=== PATIENT | female | born 1940 | race Caucasian/White ===

== ENCOUNTER → 2016-07-27 | Outpatient (CLI) | payer MEDICARE, MEDICAID ==
--- NOTE | 2016-07-27 14:49 | MM ---
Reason for exam: follow-up at short interval from prior study. Last mammogram was performed 6 months ago. History: Patient is postmenopausal. Benign excisional biopsy of the right breast, 1986. Took estrogen for 10 years beginning at age 49. Took progesterone for 10 years beginning at age 49. Physical Findings: Nurse did not find any significant physical abnormalities on exam. MG 3D Diag Mammo W/Cad LT CC and MLO view(s) were taken of the left breast. Prior study comparison: January 26, 2016, bilateral MG 3d screening mammo w/cad. November 23, 2014, bilateral MG screening mammo w CAD. The breast tissue is heterogeneously dense. This may lower the sensitivity of mammography. Finding: There are typically benign calcifications in the left breast. No significant changes in finding since January 26, 2016 and November 23, 2014. These results were verbally communicated with the patient and result sheet given to the patient on 07/27/16. ASSESSMENT: Benign, BI-RAD 2 RECOMMENDATION: Return to routine screening mammogram schedule for both breasts. Back on schedule.
--- NOTE | 2016-07-28 09:36 | BD ---
EXAMINATION TYPE: MG DEXA axial skeleton. DATE OF EXAM: 07/27/2016 COMPARISON: 06.10.2013 CLINICAL HISTORY: m81.0 disorder of bone Height: 63.3 Weight: 122 FRAX RISK QUESTIONS: Alcohol (3 or more units per day): NO Family History (Parent hip fracture): NO BREAKS Glucocorticoids (More than 3mos): NO (Ex: prednisone, prednisolone, methylprednisolone, dexamethasone, and hydrocortisone). History of Fracture in Adulthood: NO Secondary Osteoporosis: NO 1. Type 1 Diabetes: NO 2. Hyperthyroidism: NO 3. Menopause before 45: NO 4. Malnutrition: NO 5. Chronic liver disease: NO Rheumatoid Arthritis: NO Current Tobacco Use: NO RISK FACTORS HISTORY OF: History of Wrist Fracture: RT WRIST IN PAST When: UNSURE, Family History of Osteoporosis: GR GRANDMOTHER, MATERNAL, Smoke tobacco: NO Drink Alcohol: SOCIAL Active: YES Diet low in dairy products/other sources of calcium: NO Postmenopausal woman: YES AT 49 YRS OLD Take estrogen and/or progesterone medications: IN THE PAST FOR 10 YRS How long: YES Adrenal Insufficiency: NO MEDICATIONS: Osteoporosis Medications: BONIVA IN THE PAST....OFF FOR 2 YRS Additional Medications: CALCIUM AND VIT D, MULTIVITAMIN Additional History: NONE TO NOTE EXAM MEASUREMENTS: Bone mineral densitometry was performed using the [employer] System. Bone mineral density as measured about the Lumbar spine is: ----- L1-L4(G/cm2): 1.365 T Score Values are as follows: ----- L1: 0.1 ----- L2: 1.1 ----- L3: 1.7 ----- L4: 2.8 ----- L1-L4: 1.5 Bone mineral density has: Increased 5.9% since study of: 06.10.2013 Bone mineral density about the R hip (g/cm2): 0.850 Bone mineral density about the L hip (g/cm2): 0.891 T Score values are as follows: -----R Neck: -1.3 -----L Neck: -1.1 -----R Total: -1.2 -----L Total: -0.9 Bone mineral density has: Decreased -4.6% since study of: 06.10.2013 FRAX %'S: A 9.5% CHANCE OF A MAJOR OSTEOPOROTIC FX AND A 1.8% CHANCE FOR A HIP FX......PROBABILITY OF FX IN IMPRESSION: Osteopenia (T Score between -2.5 and -1 as noted by T score values There is slightly increased risk of fracture and the patient may be considered for treatment. Re-Screen 2-5 years. Bone density is diminished 4.6% within the bilateral hips from 06/10/2013. Bone density is improved 5. 9% within the lumbar spine from 2013 NOTE: T-SCORE=SD OF THE YOUNG ADULT MEAN.
== END | disposition home or self-care (01) ==
LOC: RADBDWWP 13:11
PROVIDERS: ATTEND Internal Medicine
DX: R92.8 Other abnormal and inconclusive findings on diagnostic imaging of breast (principal); M81.0 Age-related osteoporosis without current pathological fracture
CPT/HCPCS: 77080; G0206; G0279

== ENCOUNTER → 2017-03-19 | Outpatient (CLI) | payer MEDICARE, MEDICAID ==
[2017-03-15 13:50] VITALS: BMI 20.5
[2017-03-19 13:54] VITALS: BP 147/76; PULSE 93; RESP 16; TEMP 98.2
--- NOTE | 2017-03-19 21:24 | P.CONS ---
History of Present Illness - Reason for Consult Consult date: 03/19/17 - History of Present Illness This is 76 years old female with a chronic history of severe low back pain and started more than 10 years, she denies any initiating event, the pain is constant localized mainly in the low back area, with occasional radiation to the lower extremity, she denies any fever or night sweats. Denies any motor or sensory deficit, she has done physical therapy without any benefit,, she never tried interventional pain management, patient is still the pain is 4/10 and increased with activity, the pain interfering with her quality of life and ability of doing activity of daily livings, she continues to ambulate without difficulty Past Medical History Past Medical History: No Reported History Additional Past Medical History / Comment(s): spinal stenosis, chronic back pain History of Any Multi-Drug Resistant Organisms: None Reported Past Surgical History: Orthopedic Surgery Additional Past Surgical History / Comment(s): mult sx on ruiz feet, ruiz cataracts Past Anesthesia/Blood Transfusion Reactions: No Reported Reaction Smoking Status: Never smoker Medications and Allergies Home Medications Medication Instructions Recorded Confirmed Type Calcium Carbonate/Vitamin D3 1 each PO DAILY 03/15/17 03/15/17 History [Caltrate 600 Plus D3 Tablet] Multivitamins, Thera [Multivitamin 1 tab PO DAILY 03/15/17 03/15/17 History (formulary)] Allergies Allergy/AdvReac Type Severity Reaction Status Date / Time No Known Allergies Allergy Verified 03/15/17 13:42 Physical Exam Vitals: Vital Signs Temp Pulse Resp BP Pulse Ox 03/19/17 13:37 98.2 F 93 16 147/76 97 Social history : not smoker , NO ETOH , NO Illegal drug Review of Systems : 1- Constitutional : no chills , no fever , no night sweats , 2- Ears : no ear discharge , no change in hearing 3-Nose, Mouth ,Throat ; no bleeding gums, no sore throat , no epistaxis , 4-Cardiovascular : Denies chest pain, , no orthopnea , no palpitation 5-Respiratory : Denies cough , no dyspnea , no hemoptysis 6-Gastrointestinal :, no change in bowel habits , no coffee- ground emesis . 7-Genitourinary : No hematuria , no discharge , no incontinence, 8-Musculoskeletal : No gait dysfunction , report low back pain , 9- Neurological : no ataxia , no tremor , no sezure , 10-Psychatric , no suicidal ideation no hallucination 11- Endocrine : no cold intolerence , no polyuria , no polydypsia , 12-Hematologic : no easy bleeding , no easy brusing , 13-Allergic / immunology : no angioedema , no wheezing ,no allergic rhinitis 14-Integumentary : no brttle nails , no change hair / nails , no foot/leg ulcers . Physical Examinations : 1-Constitutional : Cooperative , not in acute distress . 2-HEENT : nech ; supple , no Lymphadenopathy , no Thyromegaly , :eyes , no icterus, no photophobia . ENT : , normal oropharynx , no Thrush 3- Respiratory : Chest clear to auscultations Bilaterally , no wheezing . 4- Cardiovascular : regular rate and rhythem , S1 , S2 , no S3 , no S4. 5- Gastrointestinal: abdomen soft no tenderness , no organomegally . 6- Genitourinary : Defferred . 7-Integumentary : No cellulitis , no ulcers , normal skin turgor , no cyanotic . 8- neurologic : Cranial nerve II to XII intact , no focal neurological deffecit 9-psychatric : alert , oriented X 3 , appropriate affect , intact judgment and insight . 10-Lymphatic : no Lymphadenopathy. 11- musculoskeltal: normal gait Cervical Spine motor stregnth in the deltoid and biceps, normal right side , normal Left side Lumber spine moter stegnth lower extremities ,thigh and legs 5/5 Right side , 5/5 Left side deep tendon reflexes : normal Knee Jerk , normal ankle Jerk positive lumber facet Loading Test Range of motion of the lumbar spine Flexion 60 degrees, extension 30 degrees strait leg raising test , positive at 30 degree left side , negative on the right side Fabere test positive LT . Negative on the right side Results Comments: MRI of the lumbar spine done 02/15/2017 (at [facility]) L2-3 bulging disc disease and foraminal narrowing and facet hypertrophy L3 4 facet degenerative disc disease and foraminal stenosis, L4 5 and disc bulging and facet hypertrophy Assessment and Plan Plan: Assessment and plan= chronic severe low back pain with multifactorial causes secondary to lumbar bulging disc disease and lumbar spondylosis with facet arthropathy, patient could benefit from lumbar epidural steroid injections, procedure risk and benefits and alternatives discussed with the patient and she agreed with proceeding, if she continued to have severe low back pain after second lumbar epidural steroid injections and we have to consider doing diagnostic medial branch block lumbar area and possible radiofrequency ablation , treatment plan discussed with the patient and she is willing to proceed Time with Patient: Greater than 30
== END | disposition home or self-care (01) ==
LOC: PNWHC3 13:01
PROVIDERS: ATTEND Specialist
DX: G89.29 Other chronic pain (principal); M51.26 Other intervertebral disc displacement, lumbar region; M47.816 Spondylosis without myelopathy or radiculopathy, lumbar region; M46.86 Other specified inflammatory spondylopathies, lumbar region; Z98.890 Other specified postprocedural states; Z79.899 Other long term (current) drug therapy; Z79.52 Long term (current) use of systemic steroids
CPT/HCPCS: 99211

== ENCOUNTER 2017-03-22 09:23 | Day surgery (SDC) | payer MEDICARE, MEDICAID ==
[2017-03-21 09:32] VITALS: BMI 20.5
[~2017-03-22 09:23] MED LIST: LACTATED RINGERS 1,000 ML IV SCH
[2017-03-22 09:45] VITALS: TEMP 97.8
[2017-03-22] MEDS ORDERED: LIDOCAINE 1% 20 ML VIAL (10MG/ML) FOR IV START INTRADERMA ONE (09:57)
--- NOTE | 2017-03-22 11:26 | P.PCN ---
Date of Procedure: 03/22/17 Procedure(s) Performed: PREOPERATIVE DIAGNOSIS: 1- Lumbar Degenerative Disc Diseases 2-Lumbar spondylosis with Facet arthropathy without myelopathy POSTOPERATIVE DIAGNOSIS: 1-Lumber Degenerative Disc Diseases 2-Lumbar spondylosis with Facet arthropathy without myelopathy PROCEDURE 1. Lumbar epidural steroid injection under fluoroscopic guidance at the L5-S1 level. 2. Lumbar epidurogram. ANESTHESIA: Local with 1% lidocaine 3 ml and , moderate sedation with intravenous Versed 1 mg ,and fentanyle 50 Mcg EBL: Minimal PROCEDURE INDICATION: The patient with low back pain and radiculitis symptoms unresponsive to conservative treatment. Fluoroscopy was used to optimize visualization of the needle placement and to maximize safety. PROCEDURE DESCRIPTION / TECHNIQUE: The patient was seen and identified in the preoperative area. Risks, benefits , complications including but not limited to infections ,bleeding ,allergic reaction to the medications ,nerve damage and not complete pain releife , and alternatives were discussed with the patient. The patient agreed to proceed with the procedure and signed the consent. IV was started, and vital signs were stable. Patient was taken to the OR and time out was completed. The patient was placed in the prone position on procedure table and a pillow was placed under the abdomen to reduce lumbar lordosis. The lumbosacral area was prepped and draped in the usual sterile fashion.ere closely monitored during the procedure. Conscious sedation was used during the procedure to decrease patients anxiety. Vital signs was monitered during the entire procedure. Using anterior-posterior fluoroscopy, the L5-S1 interlaminar space was identified and the skin over this site was marked and then infiltrated with 1% lidocaine subcutaneously. Subsequently, a 20-gauge Tuohy epidural needle was inserted and advanced toward the epidural space using the ``Loss of resistance technique and guided by AP and lateral fluoroscopy. The correct needle position in the epidural space was verified with the injection of 2 mL of the water soluble contrast dye Omnipaque 180 contrast and observing an excellent epidurogram with the epidural spread of the dye, after negative aspiration for blood and CSF and in the absence of paresthesias. Again after negative aspiration, a 5 ml mixture containing , Depomedrol 40 mg , and 2 ml of preservative free Normal Saline, and 2 ml of preservative free lidocaine 1% solution was injected and a washout of epidurogram was seen. Needle was withdrawn intact, skin was cleansed, and bandages were applied. COMPLICATIONS: None DISPOSITION / PLANS: The patient was placed in a supine position and transferred to the recovery area in a stable condition for observation. There was no evidence of lower extremity motor or sensory deficit after the procedure. Patient was discharged from the recovery room after meeting discharge criteria. Home discharge instructions were given to the patient by the staff. The patient was reexamined prior to discharge. The patient will schedule a follow up in the clinic in 2-4 weeks.
[2017-03-22] MEDS ORDERED: IV FLUID CONTINUATION 700 ML IV ONE (11:34)
[2017-03-22 12:03] VITALS: BP 123/76; PULSE 67; RESP 16
--- NOTE | 2017-03-22 12:09 | FL ---
EXAMINATION TYPE: FL guided pain mgmt statistic DATE OF EXAM: 03/22/2017 HISTORY: Flouroscopy time 2 seconds of fluoroscopy provided. IMPRESSION: 1. Fluoroscopy time.
== END 2017-03-22 12:27 | disposition home or self-care (01) ==
LOC: ORPAIN 09:23
PROVIDERS: ATTEND Specialist
DX: G89.29 Other chronic pain (principal); M51.16 Intervertebral disc disorders with radiculopathy, lumbar region; M47.26 Other spondylosis with radiculopathy, lumbar region; M51.26 Other intervertebral disc displacement, lumbar region
CPT/HCPCS: 62323; J2250; J1030; Q9965; J3010

== ENCOUNTER 2017-04-05 06:23 | Day surgery (SDC) | payer MEDICARE, MEDICAID ==
[2017-04-03 10:36] VITALS: BMI 20.5
[2017-04-05 07:20] VITALS: RESP 18; TEMP 98.1
[2017-04-05] MEDS: LACTATED RINGERS 1,000 ML IV SCH ×2 (07:25→07:28)
--- NOTE | 2017-04-05 07:50 | P.PCN ---
Date of Procedure: 04/05/17 Procedure(s) Performed: PREOPERATIVE DIAGNOSIS: 1- Lumbar Degenerative Disc Diseases 2-Lumbar spondylosis with Facet arthropathy without myelopathy POSTOPERATIVE DIAGNOSIS: 1-Lumber Degenerative Disc Diseases 2-Lumbar spondylosis with Facet arthropathy without myelopathy PROCEDURE 1. Lumbar epidural steroid injection under fluoroscopic guidance at the L5-S1 level. 2. Lumbar epidurogram. ANESTHESIA: Local with 1% lidocaine 3 ml and , moderate sedation with intravenous Versed 1 mg ,and fentanyle 50 Mcg EBL: Minimal PROCEDURE INDICATION: The patient with low back pain and radiculitis symptoms unresponsive to conservative treatment. Fluoroscopy was used to optimize visualization of the needle placement and to maximize safety. PROCEDURE DESCRIPTION / TECHNIQUE: The patient was seen and identified in the preoperative area. Risks, benefits , complications including but not limited to infections ,bleeding ,allergic reaction to the medications ,nerve damage and not complete pain releife , and alternatives were discussed with the patient. The patient agreed to proceed with the procedure and signed the consent. IV was started, and vital signs were stable. Patient was taken to the OR and time out was completed. The patient was placed in the prone position on procedure table and a pillow was placed under the abdomen to reduce lumbar lordosis. The lumbosacral area was prepped and draped in the usual sterile fashion.ere closely monitored during the procedure. Conscious sedation was used during the procedure to decrease patients anxiety. Vital signs was monitered during the entire procedure. Using anterior-posterior fluoroscopy, the L5-S1 interlaminar space was identified and the skin over this site was marked and then infiltrated with 1% lidocaine subcutaneously. Subsequently, a 20-gauge Tuohy epidural needle was inserted and advanced toward the epidural space using the ``Loss of resistance technique and guided by AP and lateral fluoroscopy. The correct needle position in the epidural space was verified with the injection of 2 mL of the water soluble contrast dye Omnipaque 180 contrast and observing an excellent epidurogram with the epidural spread of the dye, after negative aspiration for blood and CSF and in the absence of paresthesias. Again after negative aspiration, a 6 ml mixture containing 40 mg of Depomedrol and 2 ml of preservative free Normal Saline, and 2 ml of preservative free lidocaine 1% solution was injected and a washout of epidurogram was seen. Needle was withdrawn intact, skin was cleansed, and bandages were applied. COMPLICATIONS: None DISPOSITION / PLANS: The patient was placed in a supine position and transferred to the recovery area in a stable condition for observation. There was no evidence of lower extremity motor or sensory deficit after the procedure. Patient was discharged from the recovery room after meeting discharge criteria. Home discharge instructions were given to the patient by the staff. The patient was reexamined prior to discharge. The patient will schedule a follow up in the clinic in 2-4 weeks.
[2017-04-05] MEDS ORDERED: IV FLUID CONTINUATION 1,000 ML IV ONE (08:02)
--- NOTE | 2017-04-05 08:18 | FL ---
Fluoroscopy HISTORY: Pain 3 seconds fluoroscopy time supplied to the referring clinician. 1 intraoperative C-arm images docume nt the procedure. See dictated report from anesthesia.
[2017-04-05 08:20] VITALS: BP 137/80; PULSE 70
== END 2017-04-05 08:41 | disposition home or self-care (01) ==
LOC: ORPAIN 06:23
PROVIDERS: ATTEND Specialist
DX: M47.26 Other spondylosis with radiculopathy, lumbar region (principal); M51.16 Intervertebral disc disorders with radiculopathy, lumbar region
CPT/HCPCS: 62323; J2250; J1030; J3010

== ENCOUNTER → 2017-05-21 | Outpatient (CLI) | payer MEDICARE, MEDICAID ==
--- NOTE | 2017-05-22 10:45 | MM ---
Reason for exam: screening (asymptomatic). Last mammogram was performed 10 months ago. History: Patient is postmenopausal. Benign excisional biopsy of the right breast, 1986. Took estrogen for 10 years beginning at age 49. Took progesterone for 10 years beginning at age 49. Physical Findings: A clinical breast exam by your physician is recommended on an annual basis and results should be correlated with mammographic findings. MG 3D Screening Mammo W/Cad Bilateral CC and MLO view(s) were taken. Prior study comparison: July 27, 2016, left breast MG 3d diag mammo w/cad LT. January 26, 2016, bilateral MG 3d screening mammo w/cad. The breast tissue is heterogeneously dense. This may lower the sensitivity of mammography. There is chronic nodularity bilaterally. There is no dominant lesion. No significant changes when compared with prior studies. ASSESSMENT: Benign, BI-RAD 2 RECOMMENDATION: Routine screening mammogram of both breasts in 1 year.
== END | disposition home or self-care (01) ==
LOC: RADMAMWWP 12:38
PROVIDERS: ATTEND Internal Medicine
DX: Z12.31 Encounter for screening mammogram for malignant neoplasm of breast (principal)
CPT/HCPCS: 77063; 77067

== ENCOUNTER → 2017-05-22 | Outpatient (CLI) | payer MEDICAID, MEDICARE ==
[2017-05-22 11:59] VITALS: BP 151/73; PULSE 80; RESP 18; TEMP 98.3
--- NOTE | 2017-05-22 12:30 | P.PN ---
Progress Note - Text Progress Note Date: 05/22/17 Patient returns for followup for chronic back pain with radiation to L leg, now completely resolved after LESI x 2. Patient is continuing to have right-sided low back pain without significant radiation. Patient continues on only OTC medications for pain with good relief. Patient denies adverse drug effects from medications. Today, pt denies new-onset weakness, bowel/bladder incontinence, or any other signs or symptoms of cauda equina syndrome. There are no signs of acute intoxication, and no indications of medication diversion or overuse. In addition to above, 13-point review of systems is also negative for chest pain , shortness of breath, changes in vision, changes in hearing, new onset weakness , abdominal pain, diarrhea, extreme fatigue, malaise, fever, skin changes, homicidal or suicidal ideation, or bowel or bladder incontinence. Vital Signs: Reviewed in EMR Gen: WDWN, AAOx3, NAD HEENT: NCAT, EOMI, hearing grossly normal Pulm: resp unlabored Neck: supple, trachea midline ROM in flexion lumbar spine: reduced ROM in extension lumbar spine: reduced Lumbar paravertebral tenderness: + Facet loading: + R side > L side SI joint tenderness: neg Sawyer's test: neg Straight leg raise: neg Imaging: Reviewed in EMR Assessment: 1. lumbar radiculitis 2. lumbar spondylosis without myelopathy 3. chronic pain syndrome Plan: 1. Explanation: Opioid and psychological risk scores were reviewed. Diagnoses , prognoses, and multiple treatment options including but not limited to physical therapy, interventional therapies, adjuvant medical therapies, narcotic medication therapies, and surgery were discussed with the patient and all questions were answered to the patient's satisfaction. 2. Opioid agreement: no opioids prescribed today 3. Counseling: The patient was counseled extensively on BODY MASS INDEX, EXERCISE. Specifically, the patient was instructed regarding the importance of weight control, and exercise in the context of both chronic pain and overall health. 4. Procedures: R lumbar MBB L3-S1 5. Consultations: None 6. Investigations: UDS not done, MAPS queried and appropriate 7. Medications: none prescribed 8. Disposition: f/u for procedure as scheduled PQRS measures: 1-Patient's medications are documented in the chart. 2-Tobacco use is negative 3-Patient has not had a pneumococcal vaccine. 4-Advanced care planning discussed, patient unable to give. 5-Opioid contract NOT signed with the patient. 6-Pain positive, follow-up visit or procedure scheduled 7-Patient's blood pressure measured and documented, and patient will follow up with the primary care due to hypertension. 8-Patient's weight was measured, and body mass index within the normal limits 9-Patient WAS NOT identified as an unhealthy alcohol user.
== END | disposition home or self-care (01) ==
LOC: PNWHC3 11:35
PROVIDERS: ATTEND Anesthesiology
DX: G89.4 Chronic pain syndrome (principal); M54.9 Dorsalgia, unspecified; M47.26 Other spondylosis with radiculopathy, lumbar region
CPT/HCPCS: 99211

== ENCOUNTER 2017-05-31 08:09 | Day surgery (SDC) | payer MEDICAID, MEDICARE ==
[2017-05-29 09:26] VITALS: BMI 20.2
[2017-05-31 08:45] VITALS: RESP 16; TEMP 98.1
[2017-05-31] MEDS ORDERED: LIDOCAINE 1% 20 ML VIAL (10MG/ML) FOR IV START INTRADERMA ONE (08:46)
--- NOTE | 2017-05-31 10:00 | P.PCN ---
Date of Procedure: 05/31/17 Procedure(s) Performed: PREOPERATIVE DIAGNOSIS : 1- Lumbar spondylosis with Facet Arthropathy without myelopathy . 2- Lumber degenerative disc disease POSTOPERATIVE DIAGNOSIS: 1- Lumbar spondylosis with Facet Arthropathy without myelopathy . 2- Lumber degenerative disc disease PROCEDURE: Diagnostic Right L3 -4 , L4 -5 , and L5-S1 medial branch block under fluoroscopy ANESTHESIA: Local with 1% lidocaine 3 ml , moderate sedation with intravenous Versed 1 mg and Fentanyl 50 mcg. EBL: Minimal COMPLICATION: None. IV FLUIDS: 100 mL of normal saline. PROCEDURE INDICATION: Chronic low back pain secondary to Facet arthropathy unresponsive to conservative treatment. PROCEDURE DESCRIPTION: the patient was seen and identified in the preop holding area , risks and benefits and possible complications of the procedure and alternative were discussed with the patient, and the patient agreed to proceed with the procedure and signed the consent IV was started and vital signs monitored during the procedure and fluoroscopy was used to maximize the benefit and accuracy of the needle placement, and sedation was given to decrease patient anxiety, patient was taken to the procedure room and placed in prone position vital signs monitored in the back prepped with chlorhexidine X3 then under strict sterile technique using a right oblique fluoroscopy ,the junction of the transverse process and the superior articulating process of the right L3- 4 , L4- 5, and L5-S1 vertebra which corresponding to the fluoroscopy image of the eye of the Venkata dog on the block side for the medial branches and subsequently , after local infiltration of skin and subcu tissuies with lidocaine 1% one mL at each level ,then 22- gauge Quincke-type needles , 3 needle was used , each one of them placed at the junction of the base of the transverse process and the superior articular process at the appropriate level, and the needle was advanced until the periosteum contacted, needle placement confirmed with AP oblique and lateral view and after appropriate needle placement confirmed, and after negative aspiration for heme and CSF and there was no paresthesia 1-1/2 mL of Marcaine 0.5% mixed with 40 mg Kenalog , then half mL injected at each level after negative aspiration the needle subsequently removed . At the end of the procedure and the needles removed and a bandage applied after the skin was cleaned the cleaning solution patient taken to recovery room in stable condition and monitors in the recovery room for 20-30 minutes and discharged home in stable condition after discharge criteria met and patient will follow up with the pain clinic in 2-4 weeks
[2017-05-31] MEDS ORDERED: IV FLUID CONTINUATION 1,000 ML IV ONE (10:17)
[2017-05-31 10:31] VITALS: BP 122/66; PULSE 74
--- NOTE | 2017-05-31 11:33 | FL ---
Fluoroscopy HISTORY: Pain 2 seconds fluoroscopy time supplied to the referring clinician. 2 intraoperative C-arm images docume nt the procedure. See dictated report from anesthesia.
== END 2017-05-31 11:06 | disposition home or self-care (01) ==
LOC: ORPAIN 08:09
PROVIDERS: ATTEND Specialist
DX: G89.29 Other chronic pain (principal); M47.816 Spondylosis without myelopathy or radiculopathy, lumbar region; M51.36 Other intervertebral disc degeneration, lumbar region
CPT/HCPCS: 64493; 64494; 64495; J2250; J3301; J3010

== ENCOUNTER 2017-07-03 06:51 | Day surgery (SDC) | payer MEDICAID, MEDICARE ==
[2017-06-27 16:19] VITALS: BMI 20.2
[2017-07-03] MEDS ORDERED: LIDOCAINE 1% 20 ML VIAL (10MG/ML) FOR IV START INTRADERMA ONE (07:47)
[2017-07-03 07:56] VITALS: TEMP 98.5
--- NOTE | 2017-07-03 08:54 | P.PCN ---
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 2- Lumber degenerative disc disease POSTOPERATIVE DIAGNOSIS: 1- Lumbar spondylosis with Facet Arthropathy without myelopathy . 2- Lumber degenerative disc disease PROCEDURE: Diagnostic Right L3 -4 , L4 -5 , and L5-S1 medial branch block under fluoroscopy ANESTHESIA: Local with 1% lidocaine 6 ml , moderate sedation with intravenous Versed 1 mg and Fentanyl 50 mcg. EBL: Minimal COMPLICATION: None. IV FLUIDS: 100 mL of normal saline. PROCEDURE INDICATION: Chronic low back pain secondary to Facet arthropathy unresponsive to conservative treatment. PROCEDURE DESCRIPTION: the patient was seen and identified in the preop holding area , risks and benefits and possible complications of the procedure and alternative were discussed with the patient, and the patient agreed to proceed with the procedure and signed the consent IV was started and vital signs monitored during the procedure and fluoroscopy was used to maximize the benefit and accuracy of the needle placement, and sedation was given to decrease patient anxiety, patient was taken to the procedure room and placed in prone position vital signs monitored in the back prepped with chlorhexidine X3 then under strict sterile technique using a right oblique fluoroscopy ,the junction of the transverse process and the superior articulating process of the right L3- 4 , L4- 5, and L5-S1 vertebra which corresponding to the fluoroscopy image of the eye of the Venkata dog on the block side for the medial branches and subsequently , after local infiltration of skin and subcu tissuies with lidocaine 1% one mL at each level ,then 22- gauge Quincke-type needles , 3 needle was used , each one of them placed at the junction of the base of the transverse process and the superior articular process at the appropriate level, and the needle was advanced until the periosteum contacted, needle placement confirmed with AP oblique and lateral view and after appropriate needle placement confirmed, and after negative aspiration for heme and CSF and there was no paresthesia 1-1/2 mL of Marcaine 0.5% mixed with 40 mg Kenalog , then half mL injected at each level after negative aspiration the needle subsequently removed intact ,and a bandage applied after the skin was cleaned the cleaning solution patient taken to recovery room in stable condition and monitors in the recovery room for 20-30 minutes and discharged home in stable condition after discharge criteria met and patient will follow up with the pain clinic in 2-4 weeks
[2017-07-03] MEDS ORDERED: IV FLUID CONTINUATION 500 ML IV ONE (09:00)
[2017-07-03 09:08] VITALS: RESP 18
--- NOTE | 2017-07-03 09:17 | FL ---
Fluoroscopy HISTORY: Pain 3 seconds fluoroscopy time supplied to the referring clinician. 2 intraoperative C-arm images docume nt the procedure. See dictated report from anesthesia.
[2017-07-03 09:24] VITALS: BP 124/67; PULSE 76
== END 2017-07-03 09:50 | disposition home or self-care (01) ==
LOC: ORPAIN 06:51
PROVIDERS: ATTEND Specialist
DX: G89.29 Other chronic pain (principal); M47.816 Spondylosis without myelopathy or radiculopathy, lumbar region; M51.36 Other intervertebral disc degeneration, lumbar region
CPT/HCPCS: 64493; 64494; 64495; J2250; J3301; J3010

== ENCOUNTER → 2017-08-07 | Outpatient (CLI) | payer MEDICAID, MEDICARE ==
[2017-08-07 14:37] VITALS: BP 144/68; PULSE 74; RESP 18
--- NOTE | 2017-08-07 16:13 | P.PAINPG ---
Subjective Progress Note Date: 08/07/17 This is follow-up visit for this patient with a history of severe and chronic low back pain secondary to lumbar degenerative disc disease, lumbar facet arthropathy, We have done an interventional pain procedure diagnostic medial branch block lumbar area right-sided L3/L4 5/L5-S1 on 2 different occasions and she got more than 70% decrease in low back pain after each block Patient denies any motor or sensory deficit, denies any change in the bowel movement or urination, patient denies any fever or night sweats. Objective - Vital Signs Vital signs: Vital Signs Temp Pulse 74 08/07/17 14:28 Resp 18 08/07/17 14:28 BP 144/68 08/07/17 14:28 Pulse Ox 92 L 08/07/17 14:28 Intake & Output 08/06/17 08/07/17 08/07/17 18:59 06:59 18:59 Weight 54.431 kg - Exam Physical Examinations : 1-Constitutiona : Cooperative , not in acute distress . 2- musculoskeltal : , Lumber spine = normal moter stegnth lower extremities ,thigh and legs .06/16 Assessment and Plan Plan: Assessment and plan=1 chronic severe low back pain secondary to lumbar degenerative disc disease and lumbar spondylosis with lumbar facet arthropathy Status post diagnostic medial branch block lumbar area 2 She had more than 70% decrease in low back pain after each diagnostic block She will be good candidate for radiofrequency ablation of the medial branch lumbar area she will be scheduled to have right side and the frequency ablation L3 4 /L4 5/L5-S1 under fluoroscopy guidance Procedure risk and benefits and alternatives discussed with the patient and she agreed with proceeding Time with Patient: Less than 30 PQRS Measure Charge Sheet Measure #130: Documentation of Current Meds in Medical Chart: Patient's medications documented in chart Measure #226: Tobacco Use: Screen & Cessation Intervention: Pt not a tobacco user Measure #111: Pneumonia Vaccination: Pneumococcal vaccine administered or previously received Measure #47: Advance Care Plan: Advance care planning discussed & documented, plan or surrogate given Measure #412: Opioid Treatment Agreement: No documentation of signed opioid treatment agreement Measure #408: Opioid Therapy Follow-up Evaluation: Patient had NO f/u eval minimum every 3 months during opioid therapy Measure #317: Preventitive Care & Scrn High Bld Press & F/U: Pre-hypertensive or hypertensive BP documented, pt will f/u with PCP Measure #128: Body Mass Index (BMI) Screening & Follow-up: BMI documented within normal parameters Measure #131: Pain Assessment & Follow-up: Pain positive & plan documented, Follow-up scheduled Measure #431: Unhealthy Alcohol Use Preventative Care & Scrn: Patient not identified as an unhealthy alcohol user PQRS Narrative: Smoking Status Never smoker Do You Want the Pneumonia No Vaccine AT THIS TIME? Blood Pressure 144/68 Pain Intensity [Right Lower 2 Back] Scale Used Numeric (1 - 10) Hx Alcohol Use (MH) Yes Home Medications: Ambulatory Orders Calcium Carbonate/Vitamin D3 [Caltrate 600 Plus D3 Tablet] 1 each PO DAILY 03/15 Multivitamins, Thera [Multivitamin (formulary)] 1 tab PO DAILY 03/15/17 Controlled Substance Measures - Controlled Substance Measures Is patient prescribed a controlled substance at discharge?: No When asked, does pt state using other controlled substances?: No If prescribed controlled substance>3 days was MAPS reviewed?: No If Rx opioid, was Start Talking consent form obtained?: No If opioid is for acute pain is fill amount 7 days or less?: No Was information provided regarding opioid addiction?: No
== END | disposition home or self-care (01) ==
LOC: PNWHC3 13:28
PROVIDERS: ATTEND Specialist
DX: G89.29 Other chronic pain (principal); M51.36 Other intervertebral disc degeneration, lumbar region; M47.816 Spondylosis without myelopathy or radiculopathy, lumbar region; M46.96 Unspecified inflammatory spondylopathy, lumbar region; Z79.899 Other long term (current) drug therapy
CPT/HCPCS: 99211

== ENCOUNTER 2017-08-22 08:00 | Day surgery (SDC) | payer MEDICAID, MEDICARE ==
[2017-08-16 15:54] VITALS: BMI 20.5
[2017-08-22 09:00] VITALS: RESP 16; TEMP 98.3
[2017-08-22] MEDS ORDERED: LIDOCAINE 1% 20 ML VIAL (10MG/ML) FOR IV START INTRADERMA ONE (09:13)
--- NOTE | 2017-08-22 10:06 | P.PCN ---
Date of Procedure: 08/22/17 Procedure(s) Performed: PREOPERATIVE DIAGNOSIS: 1-Lumbar Spondylosis with Facet Arthropathy without myelopathy. 2- Lumber degenerative disc disease POSTOPERATIVE DIAGNOSIS: 1- Lumbar Spondylosis with Facet Arthropathy without myelopathy. 2- Lumber degenerative disc disease PROCEDURES : Right Radiofrequency thermocoagulation, L3-L4, L4-L5, and L5-S1 medial branch, with fluoroscopic guidance ANESTHESIA: Moderate sedation with intravenous versed 1 mg and fentaneyl 100 mcg and local infiltration with lidocaine 1% 6 ml EBL: Minimal PROCEDURE INDICATION: The patient with low back pain secondary to lumbar facet arthropathy who had more than 50% relief of her pain with previous diagnostic lumbar medial branch block with bupivacaine. PROCEDURE DESCRIPTION / TECHNIQUE: The patient was seen and identified in the preoperative area. Risks, benefits, complications, including but not limited to risk of infection ,bleeding , allergic reactions to the medications and no complete pain releife , and alternatives were discussed with the patient, the patient agreed to proceed with the procedure and signed the consent. IV was started. Vital signs remained stable throughout the procedure. Patient was taken to the OR and time out was completed. The patient was placed in the prone position on the procedure table. The lumber area was prepped and draped in the usual sterile fashion. . Vital signs were closely monitored during the procedure .IV sedation was used during the procedure to decrease patients anxiety. Using AP and then oblique fluoroscopy, the ``eye of the Venkata dog corresponding to the connection between the superior and transverse articular processes of right L3, L4, and L5 were identified, marked, and localized with 1 % lidocaine. Subsequently, a 18 -bj radiofrequency cannula with a 10- mm active tip was advanced guided by fluoroscopy to each of the ``eyes of the Venkata dog at right L3, L4, and L5. Each site then underwent sensory testing at 50 Hz and 0 to 1 volt and motor testing at 2.5 Hz and 0 to 3 volt with local stimulation, but no radicular symptoms down the legs. Thereafter the right L3-4, L4-5, and L5-S1 sites underwent radiofrequency thermocoagulation at 80 degrees celsius for 90 seconds after injecting 0.5 ml of PF lidocaine 1%. then After the thermocoagulation done , 1 ml of the block solution containing Kenalog 40 mg and 3 ml of marcain 0.5% was injected at the right L3-4 , L4-5 , and L5-S1, levels after negative aspiration of CSF and blood and with no paresthesias. Cannulas were retracted while injecting lidocaine 1% until the needle is out. At the end of the procedure, the skin was cleansed and bandages were applied. COMPLICATIONS: No acute complications. DISPOSITION / PLANS: The patient was placed in a supine position and transferred to the recovery area in a stable condition for observation and was discharged from the recovery room after meeting discharge criteria. Home discharge instructions given to the patient by the staff. The patient was reexamined prior to discharge. The patient will schedule a follow up in the clinic in 2-4 weeks.
[2017-08-22] MEDS ORDERED: IV FLUID CONTINUATION 400 ML IV ONE (10:12)
--- NOTE | 2017-08-22 10:23 | FL ---
Fluoroscopy HISTORY: Pain 7 seconds fluoroscopy time supplied to the referring clinician. 3 intraoperative C-arm images docume nt the procedure. See dictated report from anesthesia.
[2017-08-22 10:41] VITALS: BP 118/62; PULSE 56
== END 2017-08-22 10:58 | disposition home or self-care (01) ==
LOC: ORPAIN 08:00
PROVIDERS: ATTEND Specialist
DX: M47.816 Spondylosis without myelopathy or radiculopathy, lumbar region (principal); M51.36 Other intervertebral disc degeneration, lumbar region
CPT/HCPCS: 64635; 64636; J2250; J3301; J3010; 99152

== ENCOUNTER → 2017-09-03 | Outpatient (CLI) | payer MEDICAID, MEDICARE ==
--- NOTE | 2017-09-03 13:20 | P.PN ---
Subjective Progress Note Date: 09/03/17 This is a 77-year-old female with history of chronic lower back pain status post lumbar medial branch RFA recently. The patient's pain improved significantly after the last RFA she is doing much better today as she states. Patient denies adverse drug effects from medications. Today, pt denies new- onset weakness, bowel/bladder incontinence, or any other signs or symptoms of cauda equina syndrome. There are no signs of acute intoxication, and no indications of medication diversion or overuse. In addition to above, 13-point review of systems is also negative for chest pain , shortness of breath, changes in vision, changes in hearing, new onset weakness , abdominal pain, diarrhea, extreme fatigue, malaise, fever, skin changes, homicidal or suicidal ideation, or bowel or bladder incontinence. Vital Signs: Reviewed in EMR Gen: AAOx3, NAD Pulm: resp unlabored Neck: supple, trachea midline Cranial nerves exam from II-XII within normal limits grossly Neuro exam of the lower extremities showed normal and symmetrical muscle strength and deep tendon reflexes. Imaging: Reviewed in EMR Assessment: 1. lumbar radiculitis 2. lumbar spondylosis without myelopathy 3. chronic pain syndrome Plan: 1. Explanation: Opioid and psychological risk scores were reviewed. Diagnoses , prognoses, and multiple treatment options including but not limited to physical therapy, interventional therapies, adjuvant medical therapies, narcotic medication therapies, and surgery were discussed with the patient and all questions were answered to the patient's satisfaction. 2. Opioid agreement: no opioids prescribed today 3. Counseling: The patient was counseled extensively on BODY MASS INDEX, EXERCISE. Specifically, the patient was instructed regarding the importance of weight control, and exercise in the context of both chronic pain and overall health. 4. Procedures: None 5. Consultations: None 6. Investigations: UDS not done 7. Medications: none prescribed 8. Disposition: We will see the patient on an as-needed basis in the clinic PQRS measures: 1-Patient's medications are documented in the chart. 2-Tobacco use is negative 3-Patient has not had a pneumococcal vaccine. 4-Advanced care planning discussed, patient unable to give. 5-Opioid contract NOT signed with the patient. 6-Pain positive, follow-up visit or procedure scheduled 7-Patient's blood pressure measured and documented, and patient will follow up with the primary care due to hypertension. 8-Patient's weight was measured, and body mass index within the normal limits 9-Patient WAS NOT identified as an unhealthy alcohol user. Objective - Vital Signs Vital signs: Intake & Output 09/02/17 09/03/17 09/03/17 18:59 06:59 18:59 Weight 54.431 kg
[2017-09-03 13:30] VITALS: BP 153/92; PULSE 90; RESP 16
== END | disposition home or self-care (01) ==
LOC: PNWHC3 12:58
PROVIDERS: ATTEND Anesthesiology
DX: G89.4 Chronic pain syndrome (principal); M54.5 Low back pain; M47.26 Other spondylosis with radiculopathy, lumbar region
CPT/HCPCS: 99211

== ENCOUNTER → 2018-07-11 | Outpatient (CLI) | payer MEDICARE, MEDICAID ==
--- NOTE | 2018-07-12 11:15 | MM ---
Reason for exam: screening (asymptomatic). Last mammogram was performed 1 year and 2 months ago. History: Patient is postmenopausal. Benign excisional biopsy of the right breast, 1986. Took estrogen for 10 years beginning at age 49. Took progesterone for 10 years beginning at age 49. Physical Findings: A clinical breast exam by your physician is recommended on an annual basis and results should be correlated with mammographic findings. MG 3D Screening Mammo W/Cad Bilateral CC and MLO view(s) were taken. Prior study comparison: May 21, 2017, bilateral MG 3d screening mammo w/cad. July 27, 2016, left breast MG 3d diag mammo w/cad LT. The breast tissue is heterogeneously dense. This may lower the sensitivity of mammography. There are benign appearing round calcifications bilaterally. There is no discrete abnormality. ASSESSMENT: Benign, BI-RAD 2 RECOMMENDATION: Routine screening mammogram of both breasts in 1 year.
== END ==
LOC: RADMAMWWP 09:56
PROVIDERS: ATTEND Internal Medicine
DX: Z12.31 Encounter for screening mammogram for malignant neoplasm of breast (principal)
CPT/HCPCS: 77063; 77067

== ENCOUNTER → 2018-11-06 | Outpatient (CLI) | payer MEDICARE, MEDICAID ==
[2018-11-06 12:06] VITALS: BP 161/83; PULSE 86; RESP 18; TEMP 97.7; BMI 20.2
--- NOTE | 2018-11-06 13:16 | P.HPOB ---
History of Present Illness H&P Date: 11/06/18 Chief Complaint: The patient is here for her routine gynecologic exam. This is a 78-year-old with an LMP of approximately 1991. The patient is here to establish with this office. She states she has been having some vulvar irritation for approximately 2 months. She describes the irritation as stinging,burning and itching and has gotten progressively worse. The symptoms seem to be worse when she is sitting for long periods of time. She denies any vaginal discharge or vaginal odor. She was prescribed estrogen vaginal cream which she has used twice weekly into the vagina during the past month. She has not noticed any improvement and states when the cream came out of the vagina, it seemed to irritate the vulva. She is sexually active and does not believe the sexual activity is causing the problem. She denies any postmenopausal bleeding. Review of Systems Her weight has been stable. She denies respiratory, cardiac and G.I. problems. She denies maltreatment or problems with falling. : she denies any significant problems with urinary leakage. Past Medical History Past Medical History: Musculoskeletal Disorder Additional Past Medical History / Comment(s): spinal stenosis, chronic back pain. Osteopenia. 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 History of Any Multi-Drug Resistant Organisms: None Reported Past Surgical History: Orthopedic Surgery, Tonsillectomy, Tubal Ligation Additional Past Surgical History / Comment(s): mult sx on ruiz feet, ruiz cataracts; PAIN PROCEDURES. Colonoscopy 2011(4th, Next after 10yrs). Past Anesthesia/Blood Transfusion Reactions: No Reported Reaction Past Psychological History: No Psychological Hx Reported Smoking Status: Never smoker Past Alcohol Use History: Daily (1 per day.) Past Drug Use History: None Reported Additional History: She has been since 1959. She is retired. - Past Family History Mother Family Medical History: Congestive Heart Failure (CHF) Additional Family Medical History / Comment(s): There is no family history of cancer of the breast, uterus, ovaries, or colon. Medications and Allergies Home Medications Medication Instructions Recorded Confirmed Type Calcium Carbonate/Vitamin D3 1 each PO DAILY 03/15/17 11/06/18 History [Caltrate 600 Plus D3 Tablet] Multivitamins, Thera [Multivitamin 1 tab PO DAILY 03/15/17 11/06/18 History (formulary)] Estradiol Cream [Estrace Cream 1 gm VAGINAL WESA 11/06/18 11/06/18 History 0.01%] Allergies Allergy/AdvReac Type Severity Reaction Status Date / Time No Known Allergies Allergy Verified 11/06/18 12:01 Exam Vital Signs Temp Pulse Resp BP Pulse Ox 11/06/18 12:02 97.7 F 86 18 161/83 100 Intake and Output 11/05/18 11/06/18 11/06/18 22:59 06:59 14:59 Other: Weight 53.524 kg Height 5 feet 4 inches, weight 118 pounds, BMI 20.3. This is a well-developed well-nourished white female who is alert and oriented times 3 in no acute distress. HEENT: Within normal limits. NECK: Supple without mass or thyromegaly. CHEST AND LUNGS: Clear to auscultation. HEART: Regular rate and rhythm. BREASTS: Are without mass or discharge. AXILLARY EXAM: Negative for adenopathy. BACK: Negative for CVA tenderness. ABDOMEN: Soft, nontender, without palpable masses. PELVIC EXAM: External genitalia reveals some mild generalized vulvar erythema without focal lesions. The vulva has mild to moderate atrophy. There is no significant pallor. Cervix and vagina appear normal with mild to moderate atrophy. The cervix is somewhat stenotic secondary to atrophy . There is no unusual discharge. There is no evidence of prolapse. The uterus is midposition, nongravid size and nontender. There are no palpable adnexal masses or tenderness. RECTAL EXAM: Rectovaginal exam is negative for mass or tenderness and is negative for occult blood. EXTREMITIES: Nontender. IMPRESSION: 1. 78-year-old menopausal female with nonspecific vulvar irritation with evidence of mild generalized vulvitis. This does not have the appearance of lichen sclerosus. 2. History of osteopenia. PLAN: 1. Pap smear was performed. If negative, we can consider discontinuing Pap smears every can document adequate screening in the past. She has not had a Pap smear in many years. I will try to obtain records from Dr. Ramirez's office. 2. Self breast awareness was discussed with the patient. 3. Screening mammogram was done on 07/11/2018 and was benign. She will repeat this in 1 year. 4. Osteoporosis prevention was discussed. I have stressed the importance of adequate calcium, vitamin D and regular exercise. Recommended amounts of calcium and vitamin D were also discussed. 5. Kenalog 0.1% cream twice a day when necessary for skin irritation. She will also use a small amount of petroleum jelly once a day at different times than the prescription cream. She will use this as a protective layer. I have also recommended that she not over wash with soap. She states she has been washing more often because of the irritation. She will also discontinue the estrogen cream at this time since it seemed to irritate the vulva more. 6. She was instructed to call if her symptoms are not improving within 1-2 weeks. 7. The patient was advised to return in 1-2 years for her well woman examination.
== END | disposition home or self-care (01) ==
LOC: WWCWWP 11:49
PROVIDERS: ATTEND Obstetrics & Gynecology
DX: Z53.9 Procedure and treatment not carried out, unspecified reason (principal)

== ENCOUNTER → 2019-09-10 | Outpatient (CLI) | payer MEDICARE, MEDICAID ==
--- NOTE | 2019-09-10 12:55 | XR ---
Lumbar spine with flexion and extension views HISTORY: Low back pain 7 views of the lumbosacral spine There is a dextroscoliosis centered at L3. There calcification superimposed over the lower pole the l eft kidney each measuring approximately 6 mm and 4 mm. There is no evident spondylolysis, there is an anterolisthesis grade 1 L3-4, L4-5, minimal retrolisth esis grade 1 L2-3. Multilevel spondylosis is present. There is loss of disc height at intervertebral levels. Sclerosis present in the posterior elements of the lower lumbar spine. No significant change of the SVC is on flexion and extension views. Lumbar vertebral bodies show preserved height, bone min eralization is decreased. impression: Degenerative disc disease, scoliosis, facet arthropathy.
--- NOTE | 2019-09-10 15:11 | CT ---
EXAMINATION TYPE: CT lumbar spine wo con DATE OF EXAM: 09/10/2019 11:15 AM COMPARISON: Lumbar radiograph 09/10/2019 HISTORY: Lumbar stenosis, low back pain CT DLP: 352.9 mGycm Automated exposure control for dose reduction was used. Unenhanced CT of the lumbar spine was performed. Bone and soft tissue window settings are submitted as well as coronal and sagittal reconstructions. Dextroscoliosis of the lumbar spine. There is mild disc space narrowing at L2-L3 and L5-S1. Multileve l osteophytosis. Grade 1 anterolisthesis of L3 on L4. Facet arthropathy from L3-4 through L5-S1. L1-L2: Mild posterior disc bulge. No central stenosis. No evidence for foraminal encroachment. L2-L3: Mild posterior disc bulge effaces the ventral aspect of the thecal sac. Mild canal stenosis. M ild left foraminal encroachment. L3-L4: Mild posterior disc bulge. Mild canal stenosis. No foraminal encroachment. L4-L5: Mild posterior disc bulge. Mild canal stenosis. Mild right foraminal encroachment. L5-S1: Mild disc bulge. No canal stenosis. Moderate right foraminal encroachment. There are bilateral nonobstructing nephrolithiasis. There is a right renal upper pole 8 mm angiomyoli jose ramon. Parapelvic bilateral renal cysts. No hydronephrosis. IMPRESSION: 1. Degenerative disc disease and facet arthropathy with multilevel mild canal stenosis and varying de grees of foraminal encroachment as above. 2. Nonobstructing bilateral renal calculi.
--- NOTE | 2019-09-10 16:19 | NM ---
EXAMINATION TYPE: NM bone scan whole body DATE OF EXAM: 09/10/2019 COMPARISON: Plain films 08/21/2019, CT lumbar spine 09/10/2019 HISTORY: Low back pain Delayed whole-body scanning was performed following the injection of 25 mCi Tc 99m MDP. Images acqui red 3 hours post injection. FINDINGS: There is a spinal curvature. Mild uptake in the lumbar spine likely due to degenerative and facet art hropathy changes. Uptake within the left foot and ankle, bilateral wrists, shoulders is likely due to degenerative change. No abnormal increased uptake or decreased uptake to suggest metastatic disease. IMPRESSION: Scoliosis, degenerative disc disease and facet arthropathy
== END | disposition home or self-care (01) ==
LOC: RADNMMAIN 10:42
PROVIDERS: ATTEND Neurological Surgery
DX: M48.061 Spinal stenosis, lumbar region without neurogenic claudication (principal); M51.36 Other intervertebral disc degeneration, lumbar region; M47.816 Spondylosis without myelopathy or radiculopathy, lumbar region; M41.86 Other forms of scoliosis, lumbar region
CPT/HCPCS: 72114; 72131; 78306; A9503

== ENCOUNTER → 2019-11-01 | Outpatient (CLI) | payer MEDICARE, MEDICAID ==
--- NOTE | 2019-11-01 10:53 | MR ---
EXAMINATION TYPE: MR lumbar spine wo con DATE OF EXAM: 11/01/2019 COMPARISON: CT lumbar spine September 10, 2019. HISTORY: Chronic lower back/facet pain for years per patient. TECHNIQUE: Multiplanar, multisequence imaging of the lumbar spine is performed without IV contrast. FINDINGS: Sagittal images of the lumbar spine show vertebral body heights 2 remain satisfactory. Pers istent dextroconvex scoliosis centered at L2-L3 level. Persisting grade 1 retrolisthesis L2 on L3 and anterolisthesis L3 on L4. Multilevel disc desiccation. Persistent mild disc space narrowing L2-L3 le royer. The conus medullaris is normal in position and signal ending mid L1 level. Mild to moderate mul tilevel anterior spurring redemonstrated . Small hemangioma posterior L4 level sagittal image 9 redem onstrated. Axial images show T12-L1 and L1-L2 levels to appear within normal limits. Axial images at L2-L3 level shows mild to moderate broad disc bulge with left paracentral disc protru neal component effacing anterior thecal sac and mild/moderate facet degenerative changes and ligament um flavum hypertrophy effacing posterior lateral thecal sac. Patent bilateral neural foramina. Axial images at the L3-L4 level show spondylolisthesis with mild broad based posterior disc protrusio n mildly effacing anterior thecal sac. There is moderate facet degenerative change and ligamentum fla vum hypertrophy mildly effacing posterior lateral thecal sac. Patent bilateral neural foramina. Axial images at the L4-L5 level show moderate to advanced facet degenerative changes and ligamentum f lavum hypertrophy effacing posterior lateral thecal sac. There is mild broad disc bulge without parac entral disc protrusion component effacing the anterolateral thecal sac. Patent bilateral neural michelle kevan. Axial images at the L5-S1 level show moderate to advanced facet degenerative changes bilaterally. Mil d broad disc bulge. [id number] right-sided inferior neural foraminal narrowing encroaching chris g the inferior margin right L5 nerve sagittal image 12 and axial image 4. Left-sided neural foramen i s mildly narrowed. Simple parapelvic pelvic cysts in both kidneys redemonstrated more prominent on the left side. IMPRESSION: Persistent scoliosis. Persistent multilevel spondylolisthesis and degenerative changes as detailed above.
== END | disposition home or self-care (01) ==
LOC: RADMRIMAIN 09:34
PROVIDERS: ATTEND Neurological Surgery
DX: M54.5 Low back pain (principal); M41.9 Scoliosis, unspecified; M43.16 Spondylolisthesis, lumbar region
CPT/HCPCS: 72148

== ENCOUNTER → 2022-07-07 | Outpatient (CLI) | payer MEDICARE ==
--- NOTE | 2022-07-11 08:33 | MM ---
Reason for Exam: Screening (asymptomatic). Last screening mammogram was performed 12 month(s) ago. Patient History: Menarche at age 13. First Full-Term at age 20. Postmenopausal. Estrogen for 10 years from age 49 until age 59. Progesterone for 10 years from age 49 until age 59. 1987, Benign Excisional Biopsy on the right side. Risk Values: Esther 5 year model risk: 1.4%. NCI Lifetime model risk: 2.2%. Prior Study Comparison: 05/21/2017 Bilateral Screening Mammogram, [facility]. 07/11/2018 Bilateral Screening Mammogram, [facility]. 07/04/2021 Bilateral MG 3D screening mammo w/cad, [facility]. Tissue Density: The breast tissue is heterogeneously dense. This may lower the sensitivity of mammography. Findings: Analyzed By CAD. There is no suspicious group of microcalcifications or new suspicious mass in either breast. Overall Assessment: Benign, BI-RAD 2 Management: Screening Mammogram of both breasts in 1 year. . Patient should continue monthly self-breast exams. A clinical breast exam by your physician is recommended on an annual basis. This exam should not preclude additional follow-up of suspicious palpable abnormalities. Note on Esther scores and lifetime risk: 1. A Esther score greater than 3% is considered moderate risk. If this is the case, consider specialist referral to assess eligibility for a risk reducing agent. 2. If overall lifetime risk for the development of breast cancer is 20% or higher, the patient may qualify for future screening with alternating mammogram and breast MRI. Electronically signed and approved by: Phillip De Oliveira M.D. Radiologis
== END | disposition home or self-care (01) ==
LOC: RADMAMWWP 13:21
PROVIDERS: ATTEND Family Medicine
DX: Z12.31 Encounter for screening mammogram for malignant neoplasm of breast (principal); Z78.0 Asymptomatic menopausal state
CPT/HCPCS: 77063; 77067

== ENCOUNTER → 2023-08-28 | Outpatient (CLI) | payer MEDICARE ==
--- NOTE | 2023-08-28 21:09 | BD ---
EXAMINATION TYPE: Axial Bone Density DATE OF EXAM: 08/28/2023 CLINICAL HISTORY: 83 years old Female. ICD-10 CODE: [id number] OSTEO Height: 63.5 Weight: 115 FRAX RISK QUESTIONS: Family History (Parent hip fracture): no History of Fracture in Adulthood: yes Secondary Osteoporosis: no RISK FACTORS HISTORY OF: hx of wrist fx ,unknown time, it was found later in life Surgery to Spine/Hip(right/left)/Wrist (right/left): no MEDICATIONS: Thyroid Medications: no Osteoporosis Medications: no EXAM MEASUREMENTS: Bone mineral densitometry was performed using the CPower System. Bone mineral density as measured about the Lumbar spine is: ----- L1-L4(G/cm2): 1.328 T Score Values are as follows: ----- L1: -0.5 ----- L2: 1.2 ----- L3: 2.1 ----- L4: 1.7 ----- L1-L4: 1.2 Z Score Values are as follows: ----- L1: 1.8 ----- L2: 3.5 ----- L3: 4.4 ----- L4: 4.0 ----- L1-L4: 3.5 Bone mineral density has: Decreased -2.4% since study of: 07/04/2021 Bone mineral density about the R hip (g/cm2): 0.830 Bone mineral density about the L hip (g/cm2): 0.845 T Score values are as follows: -----R Neck: -1.8 -----L Neck: -1.8 -----R Total: -1.4 -----L Total: -1.3 Z Score values are as follows: -----R Neck: 0.7 -----L Neck: 0.7 -----R Total: 1.0 -----L Total: 1.1 Bone mineral density has: Decreased -1.4% since study of: 07/04/2021 FRAX%s: The graph provided illustrates a 18.2% chance for a major osteoporotic fx and a 5.1% chance f or the hips probability for fx in 10 years time. IMPRESSION: Osteopenia (T Score between -2.5 and -1). There is slightly increased risk of fracture and the patient may be considered for treatment. Re-Screen 2-5 years. NOTE: T-SCORE=SD OF THE YOUNG ADULT MEAN.
--- NOTE | 2023-09-02 13:08 | MM ---
Reason for Exam: Screening (asymptomatic). Last mammogram was performed 1 year(s) and 2 month(s) ago. Patient History: Menarche at age 13. First Full-Term at age 20. Postmenopausal. Estrogen for 10 years from age 49 until age 59. Progesterone for 10 years from age 49 until age 59. 1987, Benign Excisional Biopsy on the right side. Risk Values: Esther 5 year model risk: 1.3%. NCI Lifetime model risk: 1.8%. Prior Study Comparison: 07/11/2018 Bilateral Screening Mammogram, [facility]. 07/04/2021 Bilateral MG 3D screening mammo w/cad, [facility]. 07/07/2022 Bilateral MG 3D screening mammo w/cad, [facility]. Tissue Density: The breasts are heterogeneously dense, which may obscure small masses. Findings: Analyzed By CAD. The pattern is symmetrical. No significant interval change. A few scattered benign calcifications are present. No suspicious groups of microcalcifications, spiculated or lobular masses, architectural distortion or other secondary signs of malignancy are mammographically apparent. Overall Assessment: Benign, BI-RAD 2 Management: Screening Mammogram of both breasts in 1 year. A negative mammogram report should not preclude additional follow up of suspicious palpable abnormalities. Patient should continue monthly self breast exam. A clinical breast exam by your physician is recommended on an annual basis and results should be correlated with mammographic findings. Note on Esther scores and lifetime risk: 1. A Esther score greater than 3% is considered moderate risk. If this is the case, consider specialist referral to assess eligibility for a risk reducing agent. 2. If overall lifetime risk for the development of breast cancer is 20% or higher, the patient may qualify for future screening with alternating mammogram and breast MRI. Electronically signed and approved by: Giancarlo Moreau D.O. Radiologis
== END | disposition home or self-care (01) ==
LOC: RADBDWWP 15:15
PROVIDERS: ATTEND Family Medicine
DX: Z12.31 Encounter for screening mammogram for malignant neoplasm of breast (principal); R92.323 Mammographic fibroglandular density, bilateral breasts; M85.89 Other specified disorders of bone density and structure, multiple sites; Z78.0 Asymptomatic menopausal state
CPT/HCPCS: 77063; 77067; 77080